=== PATIENT | female | born 1995 | race Two or more races ===

== ENCOUNTER 2025-02-05 11:46 | Outpatient (CLI) | payer BC, SELFPAY | END 2025-02-05 11:47 | disposition home or self-care (01) | LOC: ANHSURGERY 11:51 | PROVIDERS: Visit Provider Obstetrics & Gynecology | DX: Z01.818 Encounter for other preprocedural examination (principal); R10.20 Pelvic and perineal pain unspecified side | CPT/HCPCS: 36415; 86850; 86900; 86901 ==

== ENCOUNTER 2025-02-12 02:38 | Day surgery (SDC) | payer BC, SELFPAY ==
--- NOTE | 2025-02-05 11:56 | PC.NURSE ---
[facility] has started construction of its new state of the art ER which will open Spring 2026. With this, we anticipate parking may be a challenge for some our surgical patients and families. Parking spaces are limited but are available for all Surgical, obstetrics, and ER patients sharing this lot. If you arrive and find you are having a hard time finding a parking space, please note that we understand the challenges, please drive around the hospital and park near Hospital Entrance 1. When you enter this entrance, you can ask a volunteer to direct or take you back to the surgical waiting area to check in. We appreciate everyone?s understanding of these expected challenges while we build for your future. Report to the Outpatient Waiting Room, entrance under the green pavilion located off [address], at time __8:30 AM on date __02/12/25 . Planned Procedure Time: _10:30 AM .? Time changes happen often and if your time is changed the preop area will call you the afternoon before. - You and your visitor will be asked to self-screen and do not enter if you have any COVID symptoms. Please call surgeon if you need to reschedule. - A mask is optional within the hospital at this time. Patients may have clear liquids (water, carbonated beverages, clear teas, apple juice) until 3 hours prior to surgery( 7:30AM) with a maximum of 20 ounces. - No food from midnight until time of surgery and no smoking, or chewing tobacco (or any form of nicotine). No chewing gum, candy or mints. Take only the following medications with a SIP of water on the morning of surgery: NONE DO NOT STOP ANY OF YOUR OTHER PRESCRIPTION MEDICATIONS PRIOR TO SURGERY EXCEPT THE FOLLOWING Hold all vitamins and supplements for 3 days per anesthesiologist.LAST DOSE 02/08/25 Medications to discontinue per physician NONE Date to take last dose Please no make-up, nail ghanaian, hairspray, perfume, deodorant, or body powder the day of surgery.? No jewelry (including any body piercings) or valuables the day of surgery, leave them at home.? Please take a shower or bath the night before, or the morning of, surgery with an antibacterial soap.? Wear comfortable, loose fitting clothing.? Children are encouraged to wear pajamas. - Jewelry must be removed prior to entering the operating room.? Rings and piercings that are not removed may be cut off. - The hospital will not accept responsibility for valuables.? - Please leave all valuables, including medications, at home the day of surgery. If you are going home after surgery, a licensed driver sales must drive you home.? - NO public transportation without another adult if you receive anesthesia. - We recommend that an adult stay with you for 24 hours following discharge. - We also recommend that you do not drive, make important decision, drink alcoholic beverages, or take any drugs that were not prescribed by your health care provider for at least 24 hours after your discharge time. For Pediatric surgeries, we recommend two adults accompany the child home. Follow any additional instructions given to you from your surgeon. VERBAL AND WRITTEN instructions given to _PATIENT AND HUSBAND and asked if any additional questions and then verbalized understanding. Patient advised to call surgeon office or pre surgery nurse liaison [phone] if any additional questions.
[2025-02-05 12:00] VITALS: BMI 22.9
[2025-02-05 13:01] VITALS: BP 111/74; PULSE 78; RESP 18; TEMP 37.1; O2SAT 99
[2025-02-12] VITALS (11 sets, daily range): BP systolic 109–136; BP diastolic 64–87; PULSE 66–98; RESP 12–20; TEMP 36.2–37; O2SAT 95–100; BMI 22.3
[2025-02-12] MEDS: LACTATED RINGERS 1,000 ML 30 ML IV CONT ×2 (09:10→11:42)
[2025-02-12] MEDS: KETOROLAC 15 MG/ML VIAL (*BKC) IV PUSH (09:20)
[2025-02-12] MEDS: ACETAMINOPHEN 500 MG TABLET 1000 MG PO ×3 (09:20→20:19)
--- NOTE | 2025-02-12 09:20 | WPDHPUPDATE1 ---
History and Physical Update Update Date/Time: 02/12/25 09:20 History and Physical has been reviewed, including an updated exam of the patient. There are NO changes in the patient's condition. Risks, benefits, and alternatives have been discussed and questions answered. Patient agrees to proceed with procedure.
--- NOTE | 2025-02-12 09:30 | WPDANESEPPF ---
Anes - Initial Pre Proc Eval Procedure: Operation Date: 02/12/25 10:30 Proposed Procedures p Robotic Assisted Hysterectomy with Bilateral Salpingectomy - Solitario Austin MD Date/Time: 02/12/25 09:30 Surgeon: Solitario Austin MD Pre Op Diagnosis: pelvic pain Patient Data Age: 30 Gender: F Height: 1.6 m Weight: 58.8 kg Last Vital Signs Temp 37.1 C 02/05/25 13:01 Pulse 78 02/05/25 13:01 Resp 18 02/05/25 13:01 BP 111/74 02/05/25 13:01 Pulse Ox 99 02/05/25 13:01 O2 Del Method Room Air 02/05/25 13:01 Allergies Allergy/AdvReac Type Severity Reaction Status Date / Time No Known Allergies Allergy Verified 02/12/25 09:14 Home Medications ?Medication ?Instructions ?Recorded ?Confirmed ?Type levonorgestrel-ethinyl estradiol 1 tablet PO DAILY 01/16/25 02/05/25 History 0.1 mg-20 mcg tablet (Vienva) evening primrose oil 500 mg capsule 500 mg PO DAILY 02/05/25 02/05/25 History famotidine 20 mg tablet (Heartburn 20 mg PO PRN PRN heartburn 02/05/25 02/05/25 History Prevention) lysine 500 mg tablet 500 mg PO DAILY 02/05/25 02/05/25 History multivitamin-ferrous 1 tablet PO DAILY 02/05/25 02/05/25 History fumarate-folic acid 18 mg-400 mcg tablet (Centrum Women) vitamin E 268 mg (400 unit) capsule 268 mg PO DAILY 02/05/25 02/05/25 History Patient hx anesthesia problems: none Family hx anesthesia problems: none Results Review: All pre-operative results and documents have been reviewed as part of the pre-operative evaluation. PENDING SALE TO [facility] Social History Social History (Updated 01/16/25 @ 13:10 by Nelly Reynaga [facility]) Smoking packs per day: 1 Smoking cigarettes per day: 20.0 Years smoked: 10 Smoking pack-years: 10.00 Smoking status: Former smoker Tobacco type: cigarettes and e-cigarettes/vaping Smoking end date: 04/24/20 Additional smoking assessment comments: CURRENTLY VAPING Alcohol intake: current Alcohol use details: ONE PER MONTH Substance use: never Substance use type: does not use Current Housing: Decline to Answer Concerned About Future Housing: Decline to Answer Difficulty Paying Gas/Electric Bills: Decline to Answer Difficulty Paying for Meds: Decline to Answer Currently Unemployed: Decline to Answer Education: Decline to Answer Difficulty w/ Childcare or Family Care: Decline to Answer Living arrangements: with family Spiritual care concerns: No Anes - Eval Final PreProcedure Day of Procedure 02/12/25 09:30 Patient weight: normal Heart: regular rate and rhythm Lungs: clear to auscultation Airway: Mallampati scale class II Neurological: alert and oriented Last oral intake: >/= 8 hours ASA classification: II Emergent: no Anesthetic plan: proceed Anesthesia type and monitoring: general ETT and standard monitoring Results Review: All pre-operative results and documents have been reviewed as part of the pre-operative evaluation. Informed Consent: The patient's anesthetic plan and its attendant risks and benefits were discussed with the patient/family/POA. Questions were solicited and answers provided to the satisfaction of the patient/family/POA.
[2025-02-12] MEDS: SCOPOLAMINE 1 MG PATCH 1 PATCH TRANSDERM (09:40)
[2025-02-12 09:46] LABS: BEDSIDEPREGUCG Negative (Negative)
--- NOTE | 2025-02-12 11:12 | S_PTH ---
PATIENT: Peyton Nixon LOC: [facility] U#:[id number] AGE/SX: 30/F ROOM: RE02/12/[address]: Solitario Austin MD : 1995 BED: DIS: 02/13/2025 SPEC #: [id number] RECD: 02/12/25 12:43 STATUS: MAC REQ #: [id number] FARIDEH: 02/12/25 11:[address]: Solitario Austin DEPT: [facility] Surgical RECD BY: Misha Young ENTERED: 02/12/25 12:44 SP TYPE: Surgical OTHR DR: UNKNOWN,DOCTOR Tissues: A - Uterus Procedures: Hematoxylin and Eosin Stain Gross and Microscopic Level 5
--- NOTE | 2025-02-12 11:56 | W.PM.PROC2 ---
Procedure Note - Detailed Date of Procedure 02/12/25 Pre-op Diagnosis pelvic pain Post-op Diagnosis Same Procedure Performed Robot assisted Total hysterectomy. Surgeon Solitario Austin MD Anesthesia General Indications heavy vaginal bleeding, pelvic pain Findings Normal-appearing ovaries with right ovarian follicular cyst that was small. Normal-appearing uterus. Possible small fundal fibroids. Absent fallopian tubes. Generalized inelasticity of the peritoneum in the posterior cul-de-sac Description of Procedure This patient was taken to the operating room. She was prepped and draped in the dorsal lithotomy position after induction of general anesthesia. The uterine manipulator and Josey cup were placed. This was done with a speculum and tenaculum. The speculum was placed. The cervix was grasped with a tenaculum. The stay sutures were placed at 3 and 9:00 a.m.. The stay sutures of 0 Vicryl were tied to the appropriately Size scope after it was slipped around the cervix.. The tip of the MARLINE manipulator was placed in the intrauterine cavity. The cup was slid into place around the cervix and into the fornices. It was locked into place. The sutures were then wrapped around the handle and tied under tension. A 8 mm skin incision was made in the left upper quadrant the abdomen. a 5 mm Visiport trocar was inserted into abdominal cavity and pneumoperitoneum was achieved. A 8 mm supraumbilical incision was made and a 8 mm trocar was inserted into the intrauterine cavity under direct visualization of the scope. an 8 mm incision was made in the right upper quadrant of the abdomen and an 8 mm robotic trocar was placed the inter uterine cavity under direct visualization the scope. An 11 mm trocar was inserted in the right upper quadrant of the abdomen rectal is a cystoscope after an incision was made there as well. The robot was docked. Electronic Orientation of the robot was performed. Bilateral ureteral lysis was performed. This was done from the pelvic brim down to the uterine artery. This was done with careful dissection using sharp and blunt dissection. In a stepwise fashion along the lateral aspects of the uterus the round ligament and broad ligaments were cauterized transected down to the level of the uterine arteries. A bladder flap was created in the bladder was moved distally to the end of the cervix and over the Josey cup. The bilateral uterine arteries were cauterized and transected. Colpotomy was then performed. In a circumferential fashion the vagina was transected using unipolar cautery. The incision was made down on the Josey cup. The uterus and cervix were taken out through the vagina. A pneumo occluder was placed in the vagina. The vaginal cuff was closed with a 0 V lock suture in a running fashion. The pelvis was irrigated with copious amounts antibiotic irrigation. The ureters were again examined and found to be intact and flowing freely under the uterine arteries into the bladder. The bladder was intact. It was examined directly. Cystoscopy was performed after administration of methylene blue. The cystoscope was inserted. Bladder was distended with fluid. The ureteric meatus was observed bilaterally. Blue fluid was seen to egress bilaterally. The bladder was drained and the cystoscope was withdrawn. The vagina was irrigated with Betadine solution after removal of the Pneumo occluder. the trocars were removed after the robot was undocked. The skin was closed with subacute or Dermabond. The patient was taken to recovery room. She was stable condition. Sponge lap and needle counts were correct x2. Estimated Blood Loss 50 Urine Output 800 Drains Yes Packing No Pathology Yes Complications No immediate complications Condition Stable Disposition Floor
[2025-02-12] MEDS: fentaNYL CITRATE INJ (*CRX) 100 MCG/2 ML VIAL 25 MCG IV PUSH ×4 (12:03→12:20)
--- NOTE | 2025-02-12 12:54 | OBPPTRN ---
Patient transferred to post room #288 via bed. Family present. Patient and family oriented to unit, room, information board, and admission packet. Patient verbalizes understanding.
[2025-02-12] MEDS: DEXTROSE 5%/0.45% SOD CHL 1,000 ML 125 ML IV CONT (13:04)
[2025-02-12] MEDS: KETOROLAC 30 MG/ML VIAL (*BKC) IV PUSH ×2 (14:12→20:18)
[2025-02-12] MEDS: SIMETHICONE 80 MG TAB.CHEW PO (16:23)
[2025-02-12] MEDS: DOCUSATE SODIUM 100 MG CAPSULE PO (16:23)
[2025-02-12] MEDS: oxyCODONE HCL (*CRX) 5 MG TAB IR PO (16:23)
[2025-02-12] MEDS: FAMOTIDINE 20 MG TABLET PO (20:23)
[2025-02-12] MEDS: ONDANSETRON INJ 4 MG/2 ML VIAL IV PUSH (20:32)
[2025-02-13] MEDS: KETOROLAC 30 MG/ML VIAL (*BKC) IV PUSH (03:05)
[2025-02-13] MEDS: ONDANSETRON INJ 4 MG/2 ML VIAL IV PUSH (03:05)
[2025-02-13] MEDS: ACETAMINOPHEN 500 MG TABLET 1000 MG PO ×2 (03:05→08:31)
[2025-02-13 03:30] VITALS: BP 111/75; PULSE 64; RESP 16; TEMP 36.6; O2SAT 99
[2025-02-13] MEDS: oxyCODONE HCL (*CRX) 5 MG TAB IR PO ×2 (04:00→09:13)
[2025-02-13 07:45] VITALS: BP 120/69; PULSE 93; RESP 16; TEMP 36.7; O2SAT 98
[2025-02-13] MEDS: SIMETHICONE 80 MG TAB.CHEW PO (08:32)
[2025-02-13] MEDS: IBUPROFEN 600 MG TABLET PO (08:32)
[2025-02-13] MEDS: DOCUSATE SODIUM 100 MG CAPSULE PO (08:32)
--- NOTE | 2025-02-13 08:39 | PM.GYNPNOP ---
SHIPPING AND RECEIVING SPECIALIST - A/P Postoperative Procedures: Procedures Operation Date: 02/12/25 10:30 Actual Procedure Side Surgeon p Robotic Assisted Hysterectomy with Bilateral Salpingectomy, Cystoscopy Bilateral Solitario Austin MD Postoperative day: 1 Postoperative status: doing well Postoperative plan: see orders Time Spent With Patient Time: Total time spent is greater than 50% in coordination of care (as documented) at patient's floor/unit and/or counseling patient: Time with patient: less than 15 minutes SHIPPING AND RECEIVING SPECIALIST- PN:Subj Post-Op Subjective Date/time seen: 02/13/25 08:39 Subjective: patient reports feeling better, patient has no complaints and pain is well controlled Exam Const: General: healthy appearing, comfortable and no acute distress Resp: Auscultation: clear to auscultation bilaterally, no rales, no rhonchi and no wheezes Cardio: Rate: regular rate Heart sounds: no click, no murmurs and no rubs GI: Inspection: non-distended Auscultation: normal bowel sounds Extrem: General: normal to inspection, no pedal edema and no calf tenderness SHIPPING AND RECEIVING SPECIALIST - PN: Obj Data Vital Signs Vital Signs: Vital Signs - 24 hr 02/12/25 11:42 02/12/25 11:45 02/12/25 12:00 Temperature 97.1 F L Pulse Rate 88 84 73 Respiratory Rate 20 18 18 Blood Pressure 115/87 136/67 115/70 Pulse Oximetry 100 100 100 Oxygen Delivery Simple Face Mask Simple Face Mask Simple Face Mask Oxygen Flow Rate 8 8 8 02/12/25 12:15 02/12/25 12:30 02/12/25 12:45 Temperature 97.6 F Pulse Rate 81 84 97 Respiratory Rate 14 12 18 Blood Pressure 118/73 115/66 118/71 Pulse Oximetry 96 99 99 Oxygen Delivery Room Air Room Air Room Air Oxygen Flow Rate 02/12/25 12:54 02/12/25 12:55 02/12/25 16:20 Temperature 98.6 F 98.5 F Pulse Rate 85 76 Respiratory Rate 16 18 Blood Pressure 115/65 110/64 Pulse Oximetry 95 100 Oxygen Delivery Room Air Oxygen Flow Rate 02/12/25 16:20 02/12/25 19:15 02/12/25 19:15 Temperature 97.9 F Pulse Rate 66 Respiratory Rate 16 Blood Pressure 109/64 Pulse Oximetry 99 Oxygen Delivery Room Air Room Air Oxygen Flow Rate 02/12/25 23:45 02/12/25 23:45 02/13/25 03:30 Temperature 98 F 97.8 F Pulse Rate 80 64 Respiratory Rate 18 16 Blood Pressure 110/69 111/75 Pulse Oximetry 98 99 Oxygen Delivery Room Air Oxygen Flow Rate Intake/Output Intake/Output: Intake & Output 02/10/25 02/11/25 02/12/25 02/13/25 23:59 23:59 23:59 23:59 Intake Total 400 1800 Output Total 1485 2582 Balance -2945 -828 Meds/Results Medications: Active Medications Generic Name Dose Route Start Last Admin Trade Name Freq PRN Reason Stop Dose Admin Acetaminophen 1,000 mg 02/12/25 12:49 02/13/25 08:31 Acetaminophen 500 Mg Tablet PO 1,000 mg Q6HR YAYA Administration Docusate Sodium 100 mg 02/12/25 17:00 02/13/25 08:32 Docusate Sodium 100 Mg Capsule PO 100 mg BID YAYA Administration Famotidine 20 mg 02/12/25 12:49 02/12/25 20:23 Famotidine 20 Mg Tablet PO 20 mg DAILY PRN Administration Heartburn Dextrose/Sodium Chloride 1,000 mls @ 125 mls/hr 02/12/25 12:49 02/12/25 13:04 Dextrose 5% Sodium Chloride 0.45% IV CONT 125 mls/hr .Q8H YAYA Administration Ibuprofen 600 mg 02/13/25 06:00 02/13/25 08:32 Ibuprofen 600 Mg Tablet PO 600 mg Q6HR YAYA Administration Naloxone HCl 0.1 mg 02/12/25 12:49 Naloxone Hcl 0.4 Mg/Ml Vial IV PUSH Q2M PRN Respiratory rate less than 10 Ondansetron HCl 4 mg 02/12/25 12:49 02/13/25 03:05 Ondansetron Inj 4 Mg/2 Ml Vial IV PUSH 4 mg Q6H PRN Administration Nausea And Vomiting Oxycodone HCl 5 mg 02/12/25 12:49 02/13/25 04:00 Oxycodone Hcl (*Crx) 5 Mg Tab Ir PO 5 mg Q4H PRN Administration Pain Rated 4-6 Oxycodone HCl 10 mg 02/12/25 12:49 Oxycodone Hcl (*Crx) 5 Mg Tab Ir PO Q6H PRN Pain Rated 7-10 Simethicone 80 mg 02/12/25 12:49 02/13/25 08:32 Simethicone 80 Mg Tab.Chew PO 80 mg TIDWM YAYA Administration Labs Labs: Laboratory Results - last 24 hr 02/12/25 08:30 POC Urine HCG, Qual Negative
== END 2025-02-13 09:25 | disposition home or self-care (01) ==
LOC: ANHSURGERY 08:30 → ANHOB2 12:52
PROVIDERS: Visit Provider Obstetrics & Gynecology
PROC: (CPT 58570; principal; 2025-02-12 10:30)
DX: N83.01 Follicular cyst of right ovary (principal); N88.0 Leukoplakia of cervix uteri; D25.0 Submucous leiomyoma of uterus; D25.2 Subserosal leiomyoma of uterus; G89.18 Other acute postprocedural pain; E28.2 Polycystic ovarian syndrome; F17.290 Nicotine dependence, other tobacco product, uncomplicated; Z98.890 Other specified postprocedural states; Z98.51 Tubal ligation status
CPT/HCPCS: 58570; S2900; 88307; 99199; A9270; J1100; J1171; J1200; J1630; J1885; J2003; J2250; J2405; J2704; J3010; J7030; J7120; Q9968

== ENCOUNTER 2025-03-05 12:42 | Outpatient (CLI) | payer BC, SELFPAY ==
--- NOTE | ~2025-03-05 | MMUS_ITS ---
EXAMINATION: MM diagnostic annalisa BI w annemarie, US breast BI complete HISTORY: Breast pain TECHNIQUE: Additional 3-D tomosynthesis images of the breasts were performed and synthetic 2-D images were generated. CAD analysis was submitted and interpreted. High resolution bilateral complete breast ultrasound was performed. COMPARISON: None BREAST PARENCHYMAL COMPOSITION: Dense: The breasts are extremely dense, which lowers the sensitivity of mammography. FINDINGS: MAMMOGRAPHIC FINDINGS: There are no suspicious masses, calcifications or architectural distortion in either breast to suggest malignancy. ULTRASOUND: Complete US of all 4 quadrants of the breast/s and retroareolar region was reviewed. There are simple and complicated cysts of both breasts. There are no suspicious masses, calcifications or architectural distortion in either breast to suggest malignancy. IMPRESSION: 1. No evidence for malignancy in either breast. Benign findings. 2. Routine yearly screening mammogram and regular clinical breast examination are recommended. BI-RADS Category 1: Negative Reviewed, dictated and finalized at location B. [employer] OPERATOR IMPRESSION: 1. No evidence for malignancy in either breast. Benign findings. 2. Routine yearly screening mammogram and regular clinical breast examination a re recommended. BI-RADS Category 1: Negative
--- OUTSIDE RECORDS SUMMARY | 2025-03-05 13:44 | XMS_ITS | Data Portability ---
Author Organization [facility] [place] Address [address] [place] [address] [address] Assessment No assessment recorded. Plan of Treatment Reminders Order Date Submit Date Provider Last Modified By Organization Details Last Modified Time Details Appointments None recorded. Lab None recorded. Referral None recorded. Procedures None recorded. Surgeries robotic assisted hysterectom y with salpingecto my (SURG) 2024 [facility] Surgery [facility], [address], [place], [address], 14:54:10 Imaging None recorded. Medication Orders hydrocodone 5 mg-acetamin ophen 325 mg tablet 2024 [facility] #[id number], [address] , [place], [address], 14:15:26 Patient TargetsNo targets recorded. Patient InstructionsNo instructions recorded. Reason for Referral None Reported. Results Created Date Observation Date Name Description Value Unit Range Abnormal Flag Note LastModifiedBy Organization Detail LastModifiedTime Result Notes None recorded. Procedures Surgical History Date Name Laterality Status Provider Name and Address Organization Details Recorded Time 02/13/20 25 ROBOTIC ASSISTED HYSTERECTOMY WITH SALPINGECTOMY (SURG) completed Not Available [facility] 02/12/2025 14:54:10 06/23/19 24 Date of Last Pap Smear completed Maegan Fernandes [facility] 10/12/2023 16:20:41 08/17/19 23 Colposcopy completed RONALDO Oakley- [address], [place], [address], [place] [facility] 08/16/2022 15:43:08 08/17/19 23 Colposcopy completed Dona Roshan [facility] 06/23/2023 14:40:55 08/17/19 23 Colposcopy completed Gracia [facility] 08/16/2022 15:00:06 02/23/20 22 Date of Last Mammogram completed Cony Fong [facility] 07/18/2022 14:32:24 04/24/19 15 Tubal Ligation completed Maegan Fernandes [facility] 05/30/2024 16:03:51 Laparoscopy completed [facility] 08/16/2022 14:59:41 Imaging Results None recorded. Procedure Notes None recorded. Medical Equipment None Reported. Allergies No known drug allergies Medications Name Sig Start Date Stop Date Status Note LastModified by Organization Details LastModified Time hydrocodone 5 mg-acetaminop hen 325 mg tablet Take 1 tablet every 6 hours by oral route. 2024 active Not Available Not Available Not Avai lable sulfamethoxaz ole 800 mg-trimethopr im 160 mg tablet TAKE 1 TABLET BY MOUTH TWICE A DAY 02/19 completed Not Available Not Available Not Available Vitamin D3 10 mcg (400 unit) tablet Take by oral route. 05/30 completed Not Available Not Available Not Available Junel (21) 1.5 mg-30 mcg tablet TAKE 1 TABLET BY MOUTH EVERY DAY 02/07 completed Not Available Not Available Not Available folic acid 10/11 completed Not Available Not Available Not Available Vestura (28) 3 mg-0.02 mg tablet TAKE 1 TABLET BY MOUTH EVERY DAY 12/30 completed Not Available Not Available Not Available Vienva 0.1 mg-20 mcg tablet TAKE 1 TABLET BY MOUTH EVERY DAY active Not Available Not Available No t Available Vitals Date Recorded Body height Body mass index (BMI) Body weight Systolic And Diastolic Provider Name and Address Organization Details Last Updated DateTime 11/02/2024 160.02 cm 22.8 kg/m2 58798.98 g 129/78 mm[Hg] Shruthi Trejo [facility] 11/02/2024 09:54:10 Date Recorded Body height Body mass index (BMI) Body weight Systolic And Diastolic Provider Name and Address Organization Details Last Updated DateTime 12/30/2024 160.02 cm 23 kg/m2 63635.01 g 122/80 mm[Hg] [facility] 12/30/2024 14:16:16 Date Recorded Body height Body mass index (BMI) Body weight Systolic And Diastolic Provider Name and Address Organization Details Last Updated DateTime 02/05/2025 160.02 cm 22.9 kg/m2 13210.42 g 111/75 mm[Hg] [facility] 02/05/2025 14:10:18 Date Recorded Body height Body mass index (BMI) Body weight Systolic And Diastolic Provider Name and Address Organization Details Last Updated DateTime 02/19/2025 160.02 cm 22.7 kg/m2 05230.82 g 111/75 mm[Hg] [facility] 02/19/2025 13:59:05 Social History Question Answer Notes LastModified by Organizat ion Details LastModified Time Tobacco Smoking Status Never Smoker Thomas Sdpanda [facility] 10/19/2022 16:28:51 Are You Blind Or Do You Have Difficulty Seeing? No Information n ot available 07/18/2022 What Is Your Level Of Caffeine Consumption? Moderate Information not available 08/16/2022 How Much Tobacco Do You Chew? None Information not available 08/16/2022 In The 14 Days Before Symptom Onset, Have You Had Close Contact With A Laboratory-confirm ed COVID-19 While That Case Was Ill? No Information n ot available 08/16/2022 In The 14 Days Before Symptom Onset, Have You Had Close Contact With A Person Who Is Under Investigation For COVID-19 While That Person Was Ill? No Information not available 08/16/2022 Have You Been To An Area Known To Be High Risk For COVID-19? No Information not available 08/16/2022 Are You Deaf Or Do You Have Serious Difficulty Hearing? No Information not available 07/18/2022 What Type Of Diet Are You Following? REGULAR Information n ot available 07/18/2022 What Is The Highest Grade Or Level Of School You Have Completed Or The Highest Degree You Have Received? [id number] Information not available 08/16/2022 Are There Any Guns Present In Your Home? No Information not available 08/16/2022 Do You Use Protection During Sex? No Information not available 08/16/2022 Do You Use Your Seat Belt Or Car Seat Routinely? Yes Information not available 08/16/2022 Do You Have Smoke And Carbon Monoxide Detectors In Your Home? Yes Information not available 08/16/2022 How Much Tobacco Do You Smoke? No Information not available 08/16/2022 Do You Use Sunscreen Routinely? Yes Information not available 08/16/2022 Have You Used IV Drugs? No Information not available 08/16/2022 Do You Have Difficulty Walking Or Climbing Stairs? No [email or web address] Information not available 10/19/2022 Sex: Unknown Functional Status Question Answer Note LastModified by Organizat ion Details LastModified Time Do you use any illicit or recreational drugs? No Information not available 08/16/2022 What is your level of alcohol consumption? Occasional Information not available 07/18/2022 Are you able to walk independently without assistance or assistive devices? YESWOREST Information not available 07/18/2022 Are you able to care for yourself independently? Yes [email or web address] Information not available 10/19/2022 Do you have difficulty dressing, bathing, grooming, or toileting? No Information not available 10/19/2022 What is your exercise level? Occasional Information not available 08/16/2022 Mental Status Question Answer Note LastModified by Organization D etails LastModified Time Do you feel stressed (tense, restless, nervous, or anxious, or unable to sleep at night)? [id number] memo Information not available 08/16/2022 Family History Relationship Description Onset Age of this Age Resolved Age Notes LastModified by Organization Details LastModified Time Unspecified Relation Family history unknown [email or web address] Not available 2024 09:50:32 Unspecified Relation Family history unknown [email or web address] Not available 2024 09:50:32 Medical History Condition Response Other N Blood Transfusion N Dermatologic Disorders N Gestational Diabetes N Anxiety Disorder N Autoimmune disease N Arthritis N Polyps N Infertility N Acid Reflux (GERD) N Cancer N Varicosities N Stroke N Neurologic/Epilepsy N Fibromyalgia N Headaches N Kidney Disease N Heart Problems N Kidney or Bladder Problems N Eating Disorder N Art (IVF or FET) N Hepatitis/Liver Disease N No Past Medical History N Urinary Tract Infection N Asthma N Trauma/Violence N Thrombophilias N Allergies (Food, seasonal, environmental ) N Breast Cancer N Drug/Latex Allergies/Reactions N Lung Disease N Defects or Inherited Disease N Breast Problem Y Hematologic disorders N Anesthesia Complications N History of STI Y Deep Vein Thrombosis N Polycystic ovary syndrome Y History of abnormal pap Y Endometriosis N High Cholesterol N Thyroid Problems N GI Problems N Anemia N Psychiatric Illness N Ovarian Cancer N Diabetes N Pulmonary (TB, Asthma) N Eczema N Abuse/Domestic Violence N Depression/ depression N Heart Disease N Pre-Eclampsia N Hypertension N Osteoporosis N Gynecological History Statement/Question Response Date of Last Mammogram 02/22/2022 Flow Light Date of LMP 01/08/2025 N Was last menstrual period normal Y STIs/STDs Y Desired Control Method Hysterectom y Abnormal Pap Y On BCP's at Conception? N HPV Vaccine N Colposcopy 08/16/2022 Duration of Flow (days) 4 Current Control Method Tubal Ligat ion Are cycles usually normal Y Frequency of Cycle (Q days) 28 Sexually Active? Y Menses Monthly Y Age of first menstrual cycle 11 Date of Last Pap Smear 06/23/2023 Sexual Problems? N LMP Definite N 01/23/2022 Obstetrics History GPAL:G 0 P 0 0 0 0 Past Encounters Encounter ID Performer Location Encounter Start Date Encounter Closed Date Diagnosis/Indication Diagnosis SNOMED-CT Code Diagnosis ICD10 Code Diagnosis IMO Codes Diagnosis Note [id number] Emely HollidayRONALDO [place] [address] [address] 07/18/2022 13:58:46 07/18/2022 16:19:51 Gynecologic examination 34025398 Z01.419 Take Calcium with Vitamin D 1200mg daily if not receiving in daily diet. It is strongly advised to have an annual flu shot and up can obtain at most pharmacies . If you have not had a TDap shot in the last 10 years you should obtain one as well. Discussed with patient & provided with informatio n regarding Gardisil vaccine to prevent the 4 strains for HPV that cause cervical cancer if under age 26. Encourage safe sexual practices, to use condoms and limit partners if not already in a monogamous relationsh ip. Do monthly self breast exams. Have mammogram yearly or every other year depending on family history. BRCA testing is now available for patients with strong genetic history of female cancer. If interested contact the office. Engage in daily exercise of low impact aerobic exercise 45-60 minutes 4-5 times weekly. Avoid tobacco and illicit drugs as well as using moderation with alcohol intake less than 1-2 8 oz beverages daily. This lifestyle behavior pattern will lead to less health conditions and longer life span. If BMI greater than 25 weight watchers or dietary consult advised. Patient received above instructio ns, and questions have been answered. If you have any questions please call or respond to this email. Patient was made aware of the patient portal and may obtain a paper copy of today's plan if desired. WWStewart discussed her hx of abnormal pap/colpos copy in [facility], repeat pap done todaywe discussed her hx of endometrio sis/pelvic pain. Will update TVUS for further evaluation Pap done, STI testing added to papBlood STI panel declinedRT C for pelvic u/s and u/s f/u Time spent in visit is a total of 45 mins with at least 50% of visit consisting of counseling and review of plan of care. History of abnormal cervical Papanicolaou smear 580211360 Z87.42 Pain in pelvis 36395360 R10.2 History of endometriosis [id number] 8842901 Z87.42 Venereal d isease screening 301281565 Z11.3 [id number] Solitario Austin MD [place] [address] [address] 07/25/2022 12:01:53 07/25/2022 12:42:06 Pain in pelvis 67496240 R10.2 [id number] RONALDO Marquez [place] [address] [address] 07/27/2022 11:49:13 07/27/2022 18:19:40 Abnormal cervical Papanicolaou smear 187643479 R87.619 Today we reviewed updated TVUSWNL. no left fallopian tube seen, possible right fallopian tube seenpatien t states she had both tubes removed in [facility] due to pelvic pain/endom etriosissh e has been feeling well since last visit, no current painDiscus sed pap result, ASCUS / HR HPV (+)Recomme nded colposcopy , reviewed [facility]pos[facility], Discussed fertility optionsShe is interested in pursing IVF, offered referral to reproducti ve endocrinol mark - she would like to wait on results of colposcopy .Partner was present today, did have partner step out for a portion of todays appointmen t. Patient expressed she feels safe at home/with partner, declines any issues or safety concerns. All questions answered, she will return to clinic for colposcopy Time spent in visit is a total of 40 mins with at least 50% of visit consisting of counseling and review of plan of care. History of human papilloma virus infection [id number] 63905 Z86.19 Reproducti ve care management 756654309 Z31.9 [id number] [facility] [address] [address] 08/16/2022 14:44:17 08/16/2022 15:54:24 Atypical squamous cells of undetermined significance on cervical Papanicolaou smear 790700430 R87.610 R87.820 NOTE: [employer] roll panner phone had to be used during visit.Spou se could speak some but not able to communicat e the medical portion. See procedure notes.Post -procedure instructio ns reviewed with understand ing verbalized .Will contact with results & next steps in plan of care. Counseled on Pap/HPV guidelines /Testing/R esults with understand ing verbalized .All questions answered to patient satisfacti on. Booklet & additional resources regarding pap smear/HPV/ Pap results given. [email or web address] w.cancer.g ov/types/c ervical/un dercoleenin g-abnormal -hpv-and-p ap-test-re sults/unde rstanding- cervical-c hanges.pdf [id number] RONALDO Marquez [place] [address] [address] 10/19/2022 16:27:28 10/19/2022 18:19:35 Pain of breast 83466585 N64.4 bilateral breast u/s orderedrec ommended nightly vitamin E and pinrose oil for symptoms relief x 2 weeksdiscu ssed possible breast specialist consult pending imaging Time spent in visit is a total of 20 mins with at least 50% of visit consisting of counseling and review of plan of care. [id number] Solitario Austin MD [place] [address] [address] 06/23/2023 14:12:32 06/24/2023 06:37:12 Pain in pelvis 08238289 R10.2 Polycystic ovary syndrome 078713217 E28.2 this patient is a 28-year-ol d female who presents for follow-up on some gynecologi c issues. She has pelvic pain and history of polycystic ovarian syndrome. After taking history today, her menstrual cycle seems to be fairly regular. She has had some breast tenderness and pain. She has been diagnosed in the past with polycystic ovarian syndrome. She was cared for in the [facility], and it is difficult to discern the diagnostic criteria in the nature of the problem previously . We are dealing with a blank was Peer here. We discussed previous surgery. She does have a history of pelvic abscesses and removal of her tubes. We spent more than 40 minutes face-to-fa ce. We discussed her polycystic ovarian syndrome. Her medical /gynecolog ic history. We talked about her previous surgeries and a evaluation for her issues. We agreed to pelvic ultrasound and laboratory evaluation . She will return to discuss those results. She had a pelvic exam today that was essentiall y nontender. She had a repeat Pap smear. She has a longstandi ng history of cervical dysplasia and abnormal Pap smears. ECC and colposcopy a year ago were normal. Abnormal c ervical Papanicolaou smear [id number] R87.619 [id number] Solitario Austin MD [place] [address],[facility] [place] [address] 06/29/2023 15:48:31 06/29/2023 16:22:06 Pain in pelvis 61019815 R10.2 [id number] Solitario Austin MD [place] [address],[place] [address] 06/30/2023 15:19:29 07/03/2023 04:33:42 Pain in pelvis 34461540 R10.2 28-year-ol d female with pelvic pain. She is here for ultrasound follow-up also. We reviewed her ultrasound results. We reviewed images together she has some large prominent ovarian follicles on her left ovary. This is where her pain is. She has a longstandi ng intermitte nt history of ovarian cysts and pelvic pain. We talked about ovarian cyst. The etiology, natural history, treatment of. We spent over 40 minutes face-to-fa ce. More than 50% was counseling . We talked about her history in detail. We determined what her previous diagnoses were from her history. [place] She had sparse records and a difficult history to discern. Reviewed the menstrual cycle, reviewed ovulation. We reviewed irregular bleeding. We reviewed suppressio n of ovulation and its effect on ovarian cyst. We talked about treatment options in detail talked about surgical treatment options and medical therapy. She will begin oral contracept natacha pills. She will return in 3 months. [id number] Solitario Austin MD [place] [address],[facility] [address] 10/12/2023 15:57:07 10/12/2023 17:22:04 Pain in pelvis 81298589 R10.2 28-year-ol d female who presents for follow-up on pelvic pain. We tried 3 months of oral contracept natacha pills. Was a norethindr one containing pill. She had exquisite breast tenderness . This is a worsening of an existing breast tenderness problem. Discussed her symptoms again. We discussed possible treatments . We agreed to change the pill to a late generation Progestin. They will return in 2 months spent 20 minutes face-to-fa ce. More than 50% was counseling . [id number] MD Jamil Kline [address],[facility] [place] [address] 02/08/2024 15:38:47 02/08/2024 17:34:19 Pain in pelvis 73170775 R10.2 this patient is a 29-year-ol d female who presents for medication follow-up. She was previously started on Nicole for breast tenderness and pelvic pain. The breast tenderness pelvic pain improved. She discontinu ed the medication and the pain returned. We agreed to restart the medication . She was given 1 year of pills by prescripti on. She will follow up as needed. She will follow up for well-woman exam. [id number] MD Jamil Kline [address],[place] [address] 05/30/2024 15:43:51 05/30/2024 16:49:01 Contraception care management 480328690 Z30.9 Abnormal u terine bleeding 3387843480 9100 N93.9 29-year-ol d female presents for Management of abnormal uterine bleeding. She has been using oral contracept natacha pills for several months. She developed breast tenderness . We change control pills to a risperidon e pill. She has marked breast tenderness with this as well. We have now agreed to change to another pill. This will be a levo norgestrel containing pill. It is a low-dose pill. We will try that for several months and consider options at that time. Patient has a history of pelvic pain and has had some recent pelvic pain. We agreed to a pelvic ultrasound . She also with like a laboratory evaluation to check her liver. She has got some right upper quadrant pain. She has some fatigue. To check a general set of labs. Abdominal pain 32676139 R10.9 [id number] MD Jamil Kline [address] [address] 06/13/2024 15:14:11 06/13/2024 16:11:56 Abnormal uterine bleeding 4832584799 9100 N93.9 R10.2 29-year-ol d female presents for Management of abnormal uterine bleeding. She has been using oral contracept natacha pills for several months. She developed breast tenderness . We change control pills to a risperidon e pill. She has marked breast tenderness with this as well. We have now agreed to change to another pill. This will be a levo norgestrel containing pill. It is a low-dose pill. We will try that for several months and consider options at that time. Patient has a history of pelvic pain and has had some recent pelvic pain. We agreed to a pelvic ultrasound . She also with like a laboratory evaluation to check her liver. She has got some right upper quadrant pain. She has some fatigue. To check a general set of labs. [id number] Solitario Austin MD [place] [address],[place] [address] 06/14/2024 15:15:13 06/14/2024 18:03:01 [id number] Solitario Austin MD [place] [address] [address] 11/02/2024 09:49:36 11/02/2024 11:47:13 Pain in pelvis 92536742 R10.2 [id number] This patient is a 29-year-ol d female who presents for follow-up on pelvic ultrasound and pelvic pain. She has longstandi ng pelvic pain. We have been working on her pelvic pain for a couple of years. She has failed medical therapy as her pain persists on oral contracept natacha pills. She is considerin g now more definitive treatment. We talked about various surgical treatments . We talked about diagnostic laparoscop y and hysterecto my. She is considerin g both and will contact us. I spent over 20 minutes on her care in total. [id number] Solitario Austin MD [place] [address],[place] [address] 12/30/2024 13:41:39 12/30/2024 14:55:14 Pain in pelvis 47531278 R10.2 [id number] This patient is a 29-year-ol d female who presents for follow-up on pelvic ultrasound and pelvic pain. She has longstandi ng pelvic pain. We have been working on her pelvic pain for a couple of years. She has failed medical therapy as her pain persists on oral contracept natacha pills. Patient would like to move forward with definitive surgical treatment. We agreed to robotic assisted hysterecto my with bilateral salpingect aleksandra. The patient understand s the procedure. The procedure was described to the patient in great detail. the patient also understand s the risks. The risks were also explained in detail. She understand s that injuries May occur during surgery. She understand s these injuries can result in hospitaliz ation, more surgery, and severe illness. She understand s there is risk of hemorrhage and infection. Patient has persistent breast pain. To send to breast specialist . [id number] Solitario Austin MD [place] [address] [address] 02/05/2025 14:03:29 02/05/2025 14:39:33 Pain in pelvis 87227698 R10.20 [id number] this patient is a 30-year-ol d female with chronic pelvic pain. We have agreed to perform robotic assisted hysterecto my bilateral salpingect aleksandra. She understand s the risks, benefits, and alternativ es. She has completed informed consent process and is ready to proceed. [id number] Solitario Austin MD [place] [address] [address] 02/19/2025 13:47:41 02/19/2025 14:22:20 Postoperative pain 013325512 G89.18 [id number] female Patient presents for postop follow-up. She is 1 week postop from a total robotic hysterecto my bilateral salpingect aleksandra . She has no complaints . Her incisions are clean dry and intact. She is recovering normally. She will follow-up as needed. Health Concerns Section Related Observation LastModified by Organization Detai ls LastModified Time None Recorded Concern Status LastModified by Organization Details LastModified Time None Recorded Advance Directives Directive None Recorded Payers Insurance Date Sequence Insurance Name Policy Number Policy Martinez Covered Member ID Martinez Member ID Guarantor Name 06/07/2024 1 [facility] [id number] Rubens Nixon [id number] Peyton Hussain 02/16/2025 1 [employer] [facility] (PPO) [id number] Rubens Nixon [id number] Peyton Fletchervath 11/02/2024 1 [place] [employer] Peyton Pleitez [id number] Peyton Fletchervath 11/02/2024 2 [facility] - DOS ON OR AFTER 20 (MEDICAID REPLACEMENT - HMO) Peyton Merinomillie [id number] Peyton Fletchervath Notes Date Note Type Note Provider Name and Address Organization Details Recorded Time 11/02/2024 text/html This patient is a 29-year-old female who presents for follow-up on pelvic ultrasound and pelvic pain. She has longstanding pelvic pain. We have been working on her pelvic pain for a couple of years. She has failed medical therapy as her pain persists on oral contraceptive pills. She is considering now more definitive treatment. We talked about various surgical treatments. We talked about diagnostic laparoscopy and hysterectomy. She is considering both and will contact us. I spent over 20 minutes on her care in total. Solitario Austin MD [address], [place], [address], [facility] 11/02/2024 11:43:05 12/30/2024 text/html This patient is a 29-year-old female who presents for follow-up on pelvic ultrasound and pelvic pain. She has longstanding pelvic pain. We have been working on her pelvic pain for a couple of years. She has failed medical therapy as her pain persists on oral contraceptive pills. Patient would like to move forward with definitive surgical treatment. We agreed to robotic assisted hysterectomy with bilateral salpingectomy. The patient understands the procedure. The procedure was described to the patient in great detail. the patient also understands the risks. The risks were also explained in detail. She understands that injuries May occur during surgery. She understands these injuries can result in hospitalization, more surgery, and severe illness. She understands there is risk of hemorrhage and infection. Patient has persistent breast pain. To send to breast specialist. Solitario Austin MD [address], [place], [address], [facility] 12/30/2024 14:48:45 02/05/2025 text/html this patient is a 30-year-old female with chronic pelvic pain. We have agreed to perform robotic assisted hysterectomy bilateral salpingectomy. She understands the risks, benefits, and alternatives. She has completed informed consent process and is ready to proceed. The patient understands the procedure. The procedure was described to the patient in great detail. the patient also understands the risks. The risks were also explained in detail. She understands that injuries May occur during surgery. She understands these injuries can result in hospitalization, more surgery, and severe illness. She understands there is risk of hemorrhage and infection. Solitario Austin MD [address], [place], [address], [facility] 02/05/2025 14:33:49 02/19/2025 text/html female Patient presents for postop follow-up. She is 1 week postop from a total robotic hysterectomy bilateral salpingectomy . She has no complaints. Her incisions are clean dry and intact. She is recovering normally. She will follow-up as needed. Solitario Austin MD [address], [place], [address], [facility] 02/19/2025 14:21:13 OBGyn Episode No OBEpisode recorded.
--- OUTSIDE RECORDS SUMMARY | 2025-03-05 13:44 | XMS_ITS | Data Portability ---
Author Organization [place] [facility], Main Office Address [address] [place] [address] Assessment No assessment recorded. Plan of Treatment Reminders Order Date Submit Date Provider Last Modified By Organization Details Last Modified Time Details Appointments None recorde d. Lab tb (M tubercu emma), ifn-shola ma kojo, blood 023 07/22/19 23 mmelgarejo 1 [employer] [facility], [facility] [place], [address], 3 09:26:48 Referral None recorde d. Procedures None recorde d. Surgeries None recorde d. Imaging None recorde d. Medication Orders None recorde d. Patient TargetsNo targets recorded. Patient InstructionsNo instructions recorded. Reason for Referral None Reported. Results Created Date Observation Date Name Description Value Unit Range Abnormal Flag Note LastModifiedBy Organization Detail LastModifiedTime 07/26/19 23 07/27/2022 QUANT IFERO N(R)- TB GOLD PLUS, 1 TUBE quantiferon( R)-TB gold plus, 1 tube NEGATI VE negati ve normal Negat natacha test resul t. M. tuber culos is compl ex infec tion unlik wei. Not Available [facility] [id number] [place], [address], 07/27/2022 11:17:14 07/26/19 23 07/27/2022 QUANT IFERO N(R)- TB GOLD PLUS, 1 TUBE nil 0.01 IU/mL normal Not Available [facility] [id number] [place], [address], 07/27/2022 11:17:14 07/26/19 23 07/27/2022 QUANT IFERO N(R)- TB GOLD PLUS, 1 TUBE mitogen-nil 9.17 IU/mL normal Not Available [place] [address] [place], [address], 07/27/2022 11:17:14 07/26/19 23 07/27/2022 QUANT IFERO N(R)- TB GOLD PLUS, 1 TUBE TB1-nil 0.00 IU/mL normal Not Available [address] [place], [address], 07/27/2022 11:17:14 07/26/19 23 07/27/2022 QUANT IFERO N(R)- TB GOLD PLUS, 1 TUBE TB2-nil 0.00 IU/mL normal The Nil tube value refle cts the backg round inter feron gamma immun e respo nse of the patie nt's blood sampl e. This value has been subtr acted from the patie nt's displ ayed TB and Mitog en resul ts. Lower than expec iesha resul ts with the Mitog en tube preve nt false -nega tive Quant ifero n readi ngs by detec ting a patie nt with a poten tial immun e suppr essiv e condi tion and/o r subop timal pre-a nalyt ical speci men handl ing. The TB1 Antig en tube is coate d with the M. tuber culos is-sp ecifi c antig ens desig mark to elici t respo nses from TB antig en prime d CD4+ helpe r T-lym phocy regina. The TB2 Antig en tube is coate d with the M. tuber culos is-sp ecifi c antig ens desig mark to elici t respo nses from TB antig en prime d CD4+ helpe r and CD8+ cytot oxic T-lym phocy regina. For addit ional infor kim mckenzie e refer to https ://ed marleeati on.qu lynn [employer]. com/f aq/FA Q204 (This link is being provi ded for infor deirdre schultz/ educa cherry l purpo ses only. ) Not Available [employer] [facility] [address] [facility] [facility] [place], [address], 07/27/2022 11:17:14 Result Notes None recorded. Problems Name Problem SNOMED Code Status Onset Date Resolution Date Notes Provider Name and Address Organization Details Recorded Time Psoriasis 5600776 Active 023 MARTIN Li, [facility] 07/21/2022 15:13:22 Problem Notes None recorded. Medical Equipment None Reported. Allergies No known drug allergies Medications Not known to be on any medication Vitals Date Recorded Body height Body mass index (BMI) Body weight Body temperature Systolic And Diastolic Provider Name and Address Organization Details Last Updated DateTime 07/21/2022 160.02 cm 23.6 kg/m2 60328.7 9 g 97.5 [degF] 112/64 mm[Hg] Gretchen Anthony RN [facility] 15:12:20 Social History Question Answer Notes LastModified by [employer] Details LastModified Time Tobacco Smoking Status Never Smoker MARTIN Li, [facility] 07/21/2022 15:14:29 What Is Your Level Of Caffeine Consumption? Moderate Information not available 07/21/2022 What Type Of Diet Are You Following? REGULAR Information not available 07/21/2022 Have You Ever Been Counseled For Unhealthy Alcohol Use? No Information not available 07/21/2022 Has Tobacco Cessation Counseling Been Provided? No Information not available 07/21/2022 Do You Have Any Dietary Restrictions? No Information not available 07/21/2022 Sex: Unknown Functional Status Question Answer Note LastModified by [employer] Details LastModified Time Do you use any illicit or recreational drugs? No Information not available 07/21/2022 Do you or have you ever used any other forms of tobacco or nicotine? No Information not available 07/21/2022 What is your level of alcohol consumption? Occasional Information not available 07/21/2022 What is your exercise level? None Information not available 07/21/2022 Mental Status None recorded. Family History Nothing Reported. Medical History No medical history recorded. Past Encounters Encounter ID Performer Location Encounter Start Date Encounter Closed Date Diagnosis/Indication Diagnosis SNOMED-CT Code Diagnosis ICD10 Code Diagnosis IMO Codes Diagnosis Note [id number] FRANCO Negrete [facility] [address] [facility] [address] [place] [address] 07/21/2022 14:41:02 07/21/2022 16:03:14 Tuberculosis screening 720047520 Z11.1 Psoriasis 6070022 L40.9 Stable without medication Pt indicates sx flare with eating spicy food. Language b arrier impedes ability to use community resources 585747765 Z76.89 Partner acts as wind turbine mechanic Health Concerns Section Related Observation LastModified by Organization Detai ls LastModified Time None Recorded Concern Status LastModified by Organization Details LastModified Time None Recorded Advance Directives Directive None Recorded Payers Insurance Date Sequence Insurance Name Policy Number Policy Martinez Covered Member ID Martinez Member ID Guarantor Name 07/21/2022 1 [place] [facility] Peyton Pricilla [id number] Peyton Pleitez Notes Date Note Type Note Provider Name and Address Organization Details Recorded Time 07/21/2022 text/html 1. Pt in office with partner (Rubens-acting as wind turbine mechanic) to establish care. Pt needs tb screening to maintain travel visa. Must have IGRA.2. Pt reports she has psoriasis that usually only flares up if she eats spicy foods. FRANCO Negrete [address] [facility], [facility] [address], [place], [address], [place] [facility] [employer] 07/21/2022 18:52:47
== END 2025-03-05 12:43 | disposition home or self-care (01) ==
LOC: ANHFOHIMG 12:43
PROVIDERS: Visit Provider Surgery
DX: N64.4 Mastodynia (principal)
CPT/HCPCS: 76641; 77062; 77066; G0279